=== PATIENT | female | born 1950 | race Caucasian/White ===

== ENCOUNTER 2020-10-18 14:27 | Emergency (ER) | payer OTHER ==
[~2020-10-18 14:27] MED LIST: ASPIRIN EC81 MG PO; CALCIUM 600 +1 EAC4 PO; PAXIL10 MG PO; VITAMIN B12-FO1 EACH PO; VITAMIN C WIT1000 MG PO
[2020-10-18 14:56] LABS: BASOPHIL 0.7 % (0-2); EOSINOPHIL 0.8 % (0-7); HCT 37.3 % (37.0-47.0); HGB 12.3 g/dl (12.5-16.0); LYMPHOCYTE 25.2 % (15-48); MCH 29.5 pg (25.0-31.0); MCV 89.4 fL (78.0-100.0); MONOCYTE 7.7 % (0-12); MPV 10.7 fL (6.0-9.5); NEUTROPHIL 65.4 % (41-80); NRBC 0; PLT 210 K/uL (150-400); RBC 4.17 M/uL (4.20-5.40); RDW 13.1 % (11.5-14.0)
[2020-10-18 15:07] LABS: ALBUMIN 3.4 g/dL (3.4-5.0); BILIRUBIN - TOTAL 0.3 mg/dL (0.2-1.0); BUN/CREAT RATIO (CALC) 22.2 RATIO; CREATININE 0.72 mg/dL (0.51-0.95); GLOBULIN (CALCULATION) 2.6 g/dL; POTASSIUM 3.7 mmol/L (3.5-5.1)
[2020-10-18 16:05] LABS: BILIRUBIN NEGATIVE (NEGATIVE); BLOOD NEGATIVE Ery/uL (NEGATIVE); CLARITY CLEAR (CLEAR); COLOR YELLOW (YELLOW); GLUCOSE (U) NORMAL (NORMAL); LEUKOCYTES NEGATIVE Leu/uL (NEGATIVE); NITRITE NEGATIVE (NEGATIVE); PROTEIN NEGATIVE (NEGATIVE); SPECIFIC GRAVITY 1.025 (1.001-1.030); UROBILINOGEN 0.2 mg/dL (0.2-1.0); pH 5.5 (5.0-9.0)
== END 2020-10-18 16:49 | disposition home or self-care (01) ==
LOC: FER 14:27
PROVIDERS: Emergency Medicine
DX: T67.5XXA Heat exhaustion, unspecified, initial encounter (principal); E86.0 Dehydration; Z88.2 Allergy status to sulfonamides; Z88.5 Allergy status to narcotic agent; X30.XXXA Exposure to excessive natural heat, initial encounter
CPT/HCPCS: 36415; 80053; 81003; 82550; 83735; 85025; 93005; J7030